=== PATIENT | male | born 1965 | race Hispanic/Latino ===

== ENCOUNTER → 2022-07-09 | Outpatient (CLI) | payer BC ==
[2022-07-09 12:23] LABS: CHOLESTEROL 269 mg/dL (<200); HDL CHOLESTEROL 51 mg/dL (29-71); LDL DIRECT 176 mg/dL (0-99); TRIGLYCERIDES 265 mg/dL (30-200)
== END | disposition home or self-care (01) ==
LOC: LAB 10:49
PROVIDERS: ATTEND Internal Medicine
DX: I25.10 Atherosclerotic heart disease of native coronary artery without angina pectoris (principal); E78.5 Hyperlipidemia, unspecified
CPT/HCPCS: 36415; 80061

== ENCOUNTER → 2022-09-16 | Outpatient (CLI) | payer BC ==
[2022-09-16 13:06] LABS: BASOPHILS % (AUTO) 0.9 % (0.0-5.0); CREATININE 1.1 mg/dL (0.5-1.5); EOSINOPHILS % (AUTO) 4.2 % (0.0-8.0); HEMATOCRIT 46.8 % (42-54); LYMPHOCYTES % (AUTO) 44.3 % (21.0-51.0); MEAN CORPUSCULAR HEMOGLOBIN 30.2 pg (27.0-33.0); MEAN CORPUSCULAR HGB CONC 33.5 g/dL (32.0-36.0); MONOCYTES % (AUTO) 9.4 % (3.0-13.0); NEUTROPHILS % (AUTO) 40.7 % (40.0-77.0); PLATELET COUNT (AUTO) 248 K/uL (130-400); POTASSIUM 3.7 mmol/L (3.5-5.1); RED CELL DISTRIBUTION WIDTH 13.6 % (11.0-15.5); WHITE BLOOD COUNT (AUTO) 4.2 K/uL (4.8-10.8)
== END | disposition home or self-care (01) ==
LOC: LAB 08:32
PROVIDERS: ATTEND Internal Medicine
DX: I25.10 Atherosclerotic heart disease of native coronary artery without angina pectoris (principal); E78.5 Hyperlipidemia, unspecified
CPT/HCPCS: 36415; 80048; 80061; 85025

== ENCOUNTER → 2023-05-06 | Outpatient (CLI) | payer BC ==
[~2023-05-06] MED LIST: CLOP75TA32 PO; TADA5TAB13 PO; TAMS-1 PO; TRIA1TAB3 PO
[2023-05-06 15:17] LABS: BASOPHILS # (AUTO) 0.03 K/uL (0.00-0.20); BASOPHILS % (AUTO) 0.6 % (0.0-5.0); EOSINOPHILS # (AUTO) 0.19 K/uL (0.00-0.70); EOSINOPHILS % (AUTO) 3.8 % (0.0-8.0); HEMATOCRIT 48.3 % (42-54); IMMATURE GRANULOCYTE ABSOLUTE 0.01 K/uL (0-1); LYMPHOCYTES # (AUTO) 1.7 K/uL (1.0-4.8); LYMPHOCYTES % (AUTO) 33.8 % (21.0-51.0); MEAN CORPUSCULAR HEMOGLOBIN 30.4 pg (27.0-33.0); MEAN CORPUSCULAR HGB CONC 33.3 g/dL (32.0-36.0); MEAN CORPUSCULAR VOLUME 91.3 fL (79-99); MONOCYTES # (AUTO) 0.5 K/uL (0.1-1.0); MONOCYTES % (AUTO) 9.9 % (3.0-13.0); NEUTROPHILS # (AUTO) 2.6 K/uL (1.8-7.7); NEUTROPHILS % (AUTO) 51.7 % (40.0-77.0); PLATELET COUNT (AUTO) 257 K/uL (130-400); RED BLOOD CELL COUNT(AUTO) 5.29 MIL/uL (4.50-6.20); RED CELL DISTRIBUTION WIDTH 13.2 % (11.0-15.5); WHITE BLOOD COUNT (AUTO) 5.1 K/uL (4.8-10.8)
[2023-05-06 15:34] LABS: CREATININE 1.3 mg/dL (0.5-1.5); POTASSIUM 3.9 mmol/L (3.5-5.1)
== END | disposition home or self-care (01) ==
LOC: LAB 11:48
PROVIDERS: ATTEND Internal Medicine
DX: I25.10 Atherosclerotic heart disease of native coronary artery without angina pectoris (principal); E78.5 Hyperlipidemia, unspecified
CPT/HCPCS: 36415; 80048; 80061; 85025

== ENCOUNTER → 2023-08-10 | Outpatient (CLI) | payer BC ==
[2023-08-10 12:43] LABS: CHOLESTEROL 170 mg/dL (<200); HDL CHOLESTEROL 58 mg/dL (29-71); LDL DIRECT 83 mg/dL (0-99); TRIGLYCERIDES 246 mg/dL (30-200)
== END | disposition home or self-care (01) ==
LOC: LAB 08:45
PROVIDERS: ATTEND Internal Medicine
DX: I25.119 Atherosclerotic heart disease of native coronary artery with unspecified angina pectoris (principal); E78.5 Hyperlipidemia, unspecified
CPT/HCPCS: 36415; 80061

== ENCOUNTER → 2023-11-10 | Outpatient (CLI) | payer BC ==
[2023-11-10 12:38] LABS: CHOLESTEROL 123 mg/dL (<200); HDL CHOLESTEROL 50 mg/dL (29-71); LDL DIRECT 47 mg/dL (0-99); TRIGLYCERIDES 271 mg/dL (30-200)
== END | disposition home or self-care (01) ==
LOC: LAB 08:47
PROVIDERS: ATTEND Internal Medicine
DX: E78.5 Hyperlipidemia, unspecified (principal)
CPT/HCPCS: 36415; 80061

== ENCOUNTER → 2023-12-23 | Outpatient (CLI) | payer BC | END | disposition home or self-care (01) | LOC: RAH 08:56 | DX: M47.816 Spondylosis without myelopathy or radiculopathy, lumbar region (principal); M25.78 Osteophyte, vertebrae | CPT/HCPCS: 72100 ==

== ENCOUNTER → 2024-07-30 | Outpatient (CLI) | payer BC ==
[~2024-07-30] MED LIST changes: +TADA-54 PO; -TADA5TAB13 PO
--- NOTE | 2024-07-31 11:56 | HMCSR ---
APPROVED REPORT TEST INDICATIONS CAD The imaging protocol used to acquire images was Rest Tc-99m / TREADMILL stress Tc-99m 1 day Consent: The procedure was explained and understood by the patient. Informerd consent was witnessed VERONICA HernandezMT First, low dose rest was performed then high dose stress. RESTING DATA: The resting ekg shows: NSR Rest SPECT myocardial perfusion imaging was performed in supine position minutes following the intra venous injection of 10 mCi of Tc-99 Sestamibi. Time of rest injection: 1010 Date: 07/30/2024 EXERCISE STRESS: At peak stress, the patient was injected intravenously with 27mCi of Tc-99 Sestamibi. Time of stress injection: 1300 Date: 07/30/2024 Heart Rate at time of stress injection: 129 bpm. Patient continued to exercise for 1 minute(s). The images were gated to evaluate regional wall motion and calculate left ventricular ejection fracti on. STRESS DETAILS Reason for Termination: Dyspnea Stress Symptoms: Dyspnea Max HR Achieved: 132 bpm Heart Rate response to stress: Normal heart rate response to stress. % of APMHR Achieved: 81 Max Blood Pressure: 136/77 mmHg Blood Pressure response to stress: Normal blood pressure response during stress. Exercise duration: 6 min Exercise capacity: 7.0METs Highest Stage Achieved: Stage 2: 2.5 mph at 12% grade. Stress ECG: NSR Arrhythmia: Yes. Frequent isolated PVCs in stage I, with reduction in frequency in stage II. ST Change: No. Maximum ST Elevation: [address] Depression: 0 mm Angina Score during exercise: None Amaral Treadmill Score: 6.0 Recovery Arrhythmia: No Overall Exercise Capacity: Fair Study quality was good. Lung uptake was Normal. Artifact: No artifact LEFT VENTRICLE Size: The left ventricular size is normal. Systolic Function:The left ventricular systolic function is normal. Wall Motion: No regional wall motion abnormalities noted. The left ventricular ejection fraction was calculated to be 75%.TID = 0.68. LV PERFUSION Large size, severe fixed perfused defect of the basal to distal inferior wall. Small size, moderate severity partially reversible perfusion defect of the basal to mid inferolateral wall. RV Size/Shape Not visualized. IMPRESSION Abnormal exercise nuclear stress test. Diseased Vessels: Left Circumflex, Right Coronary Global LV Function: Normal Stress ECG Summary: Normal LV Perfusion Summary: Abnormal LV Viability Summary: Potentially viable myocardium Conclusion Amaral treadmill score of +6. Submaximal exercise portion due dyspnea, achieving 81% MPHR. ECG analysis negative for ischemia. Frequent PVCs in isolation noted in Stage I. Large size, severe fixed perfused defect of the basal to distal inferior wall consistent with infarct . Small size, moderate severity partially reversible perfusion defect of the basal to mid inferolateral wall consistent with periinfarct ischemia. Normal LV systolic function with LVEF 75% Abnormal exercise nuclear stress test.
== END | disposition home or self-care (01) ==
LOC: RAH 09:02
PROVIDERS: ATTEND Internal Medicine
DX: R94.39 Abnormal result of other cardiovascular function study (principal); I25.10 Atherosclerotic heart disease of native coronary artery without angina pectoris; R07.9 Chest pain, unspecified; R06.00 Dyspnea, unspecified
CPT/HCPCS: 78452; 93017; A9500 ×2

== ENCOUNTER → 2024-08-02 | Outpatient (CLI) | payer BC | END | disposition home or self-care (01) | LOC: RAH 13:52 | PROVIDERS: ATTEND Internal Medicine | DX: I25.10 Atherosclerotic heart disease of native coronary artery without angina pectoris (principal); R94.39 Abnormal result of other cardiovascular function study; I49.3 Ventricular premature depolarization | CPT/HCPCS: 93306 ==

== ENCOUNTER → 2024-08-23 | Outpatient (CLI) | payer BC ==
--- NOTE | 2024-08-24 08:22 | HMCSR ---
APPROVED REPORT Laterality: Bilateral Indications r07.9 i25.10 VELOCITY AND DOPPLER WAVEFORM ANALYSIS HEAD OF VISUAL MERCHANDISING (R) 49.3cm/sec, Triphasic, HEAD OF VISUAL MERCHANDISING (L) 39.1cm/sec, Triphasic, HEAD OF VISUAL MERCHANDISING Prox. (R) cm/sec, HEAD OF VISUAL MERCHANDISING Prox. (L) cm/sec, Prof Fem Art. (R) 37.5cm/sec, Triphasic, Prof Fem Art. (L) 28.1cm/sec, Triphasic, Fem Art Prox. (R) 58.9cm/sec, Triphasic, Fem Art Prox. (L) 69.7cm/sec, Triphasic, Fem Art Mid. (R) 47.7cm/sec, Triphasic, Fem Art Mid. (L) 56.6cm/sec, Triphasic, Fem Art Dist (R) 46.5cm/sec, Triphasic, Fem Art Dist. (L) 39.8cm/sec, Triphasic, Pop Art(AK) (R) 31.7cm/sec, Triphasic, Pop Art (AK) (L) 35.9cm/sec, Triphasic, Pop Art (Fossa)(R) 34.0cm/sec, Triphasic, Pop Art (Fossa) (L) 35.0cm/sec, Triphasic, Pop Art(BK) (R) 36.2cm/sec, Triphasic, Pop Art (BK) (L) 35.9cm/sec, Triphasic, CONTROL SYSTEM MANAGER Prox. (R) 28.6cm/sec, Triphasic, CONTROL SYSTEM MANAGER Prox. (L) 45.6cm/sec, Triphasic, CONTROL SYSTEM MANAGER Mid. (R) 56.0cm/sec, Triphasic, CONTROL SYSTEM MANAGER Mid. (L) 52.0cm/sec, Triphasic, CONTROL SYSTEM MANAGER Dist. (R) 39.8cm/sec, Triphasic, CONTROL SYSTEM MANAGER Dist. (L) 39.5cm/sec, Triphasic, Per Art Prox. (R) 22.4cm/sec, Triphasic, Per Art Prox. (L) 24.7cm/sec, Triphasic, Per Art Mid. (R) 32.0cm/sec, Triphasic, Per Art Mid. (L) 25.0cm/sec, Triphasic, Per Art Dist. (R) 22.1cm/sec, Triphasic, Per Art Dist. (L) 24.1cm/sec, Triphasic, MAURICIO Prox. (R) 23.8cm/sec, Triphasic, MAURICIO Prox. (L) 60.7cm/sec, Triphasic, MAURICIO Mid. (R) 32.0cm/sec, Triphasic MAURICIO Mid. (L) 46.0cm/sec, Triphasic, MAURICIO Dist. (R) 57.8cm/sec, Triphasic, MAURICIO Dist. (L) 63.5cm/sec, Triphasic, Technologist Impression No evidence of significant arterial insufficiency of bilateral lower extremities. Conclusion No evidence of significant arterial insufficiency of bilateral lower extremities. Conclusion No evidence of significant arterial insufficiency of bilateral lower extremities.
== END | disposition home or self-care (01) ==
LOC: SHCH 10:23
PROVIDERS: ATTEND Internal Medicine
DX: I73.9 Peripheral vascular disease, unspecified (principal); I25.10 Atherosclerotic heart disease of native coronary artery without angina pectoris; R07.9 Chest pain, unspecified
CPT/HCPCS: 93925

== ENCOUNTER → 2024-09-08 | Outpatient (CLI) | payer BC ==
[~2024-09-08] MED LIST changes: +CARV6.25 PO; +EVOL140S2 SQ; +FENO134C21 PO; +METF-910 PO; +XARELTO PO
--- NOTE | 2024-09-10 18:12 | HMCSR ---
APPROVED REPORT Laterality: Bilateral Indications Claudication: , PAD VELOCITY AND DOPPLER WAVEFORM ANALYSIS STRATEGIC MARKETING LEADER (R) 108.8cm/sec, Triphasic, STRATEGIC MARKETING LEADER (L) 97.2cm/sec, Triphasic, Prof Fem Art. (R) 64.8cm/sec, Triphasic, Prof Fem Art. (L) 50.9cm/sec, Triphasic, Fem Art Prox. (R) 83.4cm/sec, Triphasic, Fem Art Prox. (L) 86.8cm/sec, Triphasic, Fem Art Mid. (R) 73.4cm/sec, Triphasic, Fem Art Mid. (L) 57.1cm/sec, Triphasic, Fem Art Dist (R) 66.9cm/sec, Triphasic, Fem Art Dist. (L) 78.3cm/sec, Triphasic, Pop Art(AK) (R) 59.5cm/sec, Triphasic, Pop Art (AK) (L) 51.4cm/sec, Triphasic, Pop Art (Fossa)(R) 47.3cm/sec, Triphasic, Pop Art (Fossa) (L) 42.4cm/sec, Triphasic, Pop Art(BK) (R) 59.5cm/sec, Triphasic, Pop Art (BK) (L) 57.9cm/sec, Triphasic, SURVEY ASSOCIATE Prox. (R) 60.4cm/sec, Triphasic, SURVEY ASSOCIATE Prox. (L) 53.8cm/sec, Triphasic, SURVEY ASSOCIATE Mid. (R) 95.4cm/sec, Triphasic, SURVEY ASSOCIATE Mid. (L) 61.2cm/sec, Triphasic, SURVEY ASSOCIATE Dist. (R) 62.0cm/sec, Triphasic, SURVEY ASSOCIATE Dist. (L) 57.9cm/sec, Triphasic, Per Art Prox. (R) 28.7cm/sec, Triphasic, Per Art Prox. (L) 35.1cm/sec, Triphasic, Per Art Mid. (R) 38.1cm/sec, Triphasic, Per Art Mid. (L) 31.9cm/sec, Triphasic, Per Art Dist. (R) 26.0cm/sec, Triphasic, Per Art Dist. (L) 29.8cm/sec, Triphasic, MAURICIO Prox. (R) 61.2cm/sec, Triphasic, MAURICIO Prox. (L) 60.0cm/sec, Triphasic, MAURICIO Mid. (R) 46.5cm/sec, Triphasic MAURICIO Mid. (L) 58.0cm/sec, Triphasic, MAURICIO Dist. (R) 76.7cm/sec, Triphasic, MAURICIO Dist. (L) 75.2cm/sec, Triphasic, Technologist Impression No evidence of significant arterial insufficiency of bilateral lower extremities. Conclusion No significant stenosis either side. Conclusion No significant stenosis either side.
== END | disposition home or self-care (01) ==
LOC: SHCH 12:37
PROVIDERS: ATTEND Internal Medicine
DX: I73.9 Peripheral vascular disease, unspecified (principal)
CPT/HCPCS: 93925

== ENCOUNTER → 2025-05-20 | Outpatient (CLI) | payer BC ==
[~2025-05-20] MED LIST changes: +ASPI-1443 PO; +CLOP-31 PO; -CLOP75TA32 PO; -FENO134C21 PO; -METF-910 PO; +RANO500T2 PO; -TADA-54 PO; -TAMS-1 PO; +TAMS-55 PO; -TRIA1TAB3 PO; -XARELTO PO
--- NOTE | 2025-05-21 01:44 | HMCIMG ---
EXAM: CR Right Knee, 3 View. CLINICAL HISTORY: Pain in right knee. COMPARISON: None provided. FINDINGS: BONES: No acute fracture or destructive osseous lesion. Marginal osteophyte formation noted along femorotibial and patellofemoral joint margins. JOINTS: Mild diffuse joint space narrowing involving femorotibial and patellofemoral compartments with subchondral sclerosis, consistent with mild osteoarthrosis. No significant joint effusion. SOFT TISSUES: No soft-tissue swelling or calcification. IMPRESSION: * Diffuse mild osteoarthrosis of the right knee. * No acute fracture or joint effusion. /[place]
== END | disposition home or self-care (01) ==
LOC: RAH 10:30
DX: S80.01XA Contusion of right knee, initial encounter (principal); S89.91XA Unspecified injury of right lower leg, initial encounter; M17.11 Unilateral primary osteoarthritis, right knee; M25.861 Other specified joint disorders, right knee; M25.561 Pain in right knee; X58.XXXA Exposure to other specified factors, initial encounter; Y93.89 Activity, other specified; Y92.89 Other specified places as the place of occurrence of the external cause; Y99.8 Other external cause status
CPT/HCPCS: 73562